=== PATIENT | male | born 1995 | race Caucasian/White ===

== ENCOUNTER 2018-01-01 08:08 | Emergency (ER) | payer SELFPAY ==
[~2018-01-01] VITALS: Ht 172.7 cm; Wt 90.3 kg
[2018-01-01 08:19] VITALS: TEMP 97.7
[2018-01-01 09:47] VITALS: BP 131/73; PULSE 74
== END 2018-01-01 09:47 | disposition home or self-care (01) ==
LOC: COL.ER 08:08
DX: H57.11 Ocular pain, right eye (principal); F17.210 Nicotine dependence, cigarettes, uncomplicated

== ENCOUNTER → 2020-02-10 | Outpatient (CLI) | payer BC | LOC: COL.RAD 08:45 | DX: K82.8 Other specified diseases of gallbladder (principal) ==

== ENCOUNTER → 2020-03-06 | Outpatient (CLI) | payer BC | LOC: COL.RAD 08:12 | DX: N20.1 Calculus of ureter (principal); R01.1 Cardiac murmur, unspecified; Z90.89 Acquired absence of other organs | CPT/HCPCS: Q9967 ==

== ENCOUNTER 2020-07-20 21:14 | Emergency (ER) | payer BC ==
[~2020-07-20] VITALS: Ht 172.7 cm; Wt 100.0 kg
[2020-07-20 21:43] LABS: COLLECTION METHOD CLEAN CATCH
[2020-07-20 22:00] LABS: MUCOUS Present /lpf; PH 5 (5-8); SQUAMOUS EPITHELIAL 0-2 /hpf; URINE APPEARANCE Hazy; URINE BACTERIA None Seen /hpf; URINE BILIRUBIN Negative (NEGATIVE); URINE BLOOD Negative (NEGATIVE); URINE COLOR Yellow; URINE GLUCOSE Negative (NEGATIVE); URINE KETONE Negative (NEGATIVE); URINE LEUKOCYTE ESTERASE Negative (NEGATIVE); URINE NITRATE Negative (NEGATIVE); URINE PROTEIN(semi-quant) 1+ (NEGATIVE); URINE RBC 0-2 /hpf
[2020-07-20 22:14] LABS: BASO # 0.1 (0.0-0.2); BASO % 0.4 % (0.0-2.0); EOS # 0.1 (0.0-0.7); EOS % 0.7 % (0-4.0); GRAN # 12.2 (1.4-6.5); GRAN % 89.5 % (42.2-75.2); HEMATOCRIT 48.5 % (42.0-52.0); HEMOGLOBIN 16.9 g/dl (13.5-18.0); LYMPH # 0.6 (1.2-3.4); MEAN CELL VOLUME 86 fl (80.0-100.0); MEAN CORPUSCULAR HEMOGLOBIN 30 pg (27.0-31.0); MEAN CORPUSCULAR HGB CONC 35 g/dl (33.0-37.0); MEAN PLATELET VOLUME 9.8 fl (7.4-10.4); MONO # 0.7 (0.1-0.6); MONO % 5.1 % (1.7-9.3); PLATELET COUNT 221 K/mm3 (130-400); RED BLOOD COUNT 5.67 M/mm3 (4.20-5.60); REDCELL DISTRIBUTION WIDTH-CV 12.3 % (11.5-14.5)
[2020-07-20 23:05] LABS: ALANINE AMINOTRANSFERASE 44 U/L (4-49); ALBUMIN 4.5 gm/dL (3.5-5.0); ALKALINE PHOSPHATASE 59 U/L (50-136); ANION GAP 10 mmol/L (7-16); AST,SGOT 31 U/L (15-37); BILIRUBIN,TOTAL 0.9 mg/dL (0.0-1.0); BLOOD UREA NITROGEN 16 mg/dL (9-20); CALCIUM 9.1 mg/dL (8.4-10.2); CARBON DIOXIDE 25 mmol/L (22-30); CHLORIDE 103 mmol/L (98-107); CREATININE, serum 0.84 (0.66-1.25); GLUCOSE 99 mg/dL (74-106); LIPASE 62 U/L (23-300); POTASSIUM 3.8 mmol/L (3.4-5.0); SODIUM 138 mmol/L (137-145); TOTAL PROTEIN 7.7 gm/dL (6.4-8.2)
[2020-07-20 23:07] LABS: C-REACTIVE PROTEIN < 0.5 mg/dL (0.0-0.9)
[2020-07-21 01:00] VITALS: BP 121/67; PULSE 90; TEMP 97.9
[2020-07-21] MEDS ORDERED: ZOFRAN ODT4 MG PO (01:17)
== END 2020-07-21 01:00 | disposition home or self-care (01) ==
LOC: COL.ER 21:14
PROVIDERS: Nurse Practitioner
DX: R10.11 Right upper quadrant pain (principal); F17.210 Nicotine dependence, cigarettes, uncomplicated; F17.220 Nicotine dependence, chewing tobacco, uncomplicated; Z88.6 Allergy status to analgesic agent
CPT/HCPCS: J2405; J3010; J7030

== ENCOUNTER 2020-08-29 05:21 | Day surgery (SDC) | payer BC ==
[2020-08-29] VITALS (7 sets, daily range): BP systolic 113–139; BP diastolic 63–78; PULSE 72–92; TEMP 97.6
[~2020-08-29] VITALS: Ht 172.7 cm; Wt 96.7 kg
[~2020-08-29 05:21] MED LIST: ZOFRAN ODT4 MG PO
[2020-08-29] MEDS ORDERED: MOTRIN 600600 MG/TAB PO (09:24)
[2020-08-29] MEDS ORDERED: NORCO 325 MG-51 TAB PO (09:24)
--- NOTE | 2020-08-29 10:04 | NUR ---
Patient returned to [facility] from PACU via cart. Patient verbalized discomfort while PACU nurse still present, fentanyl given. Patient resting comfortably in bed. Postop vital signs started and stable. Will continue to monitor. Call light within reach.
--- NOTE | 2020-08-29 10:15 | NUR ---
Glo hirsch in bed. Rails up, call light within reach. Vital signs stable. O2 95% at 2L. Will continue to monitor.
--- NOTE | 2020-08-29 10:30 | NUR ---
Patient laying in bed, rails up and call light in reach. Patient is drowsy. Verbalizes pain. Patient agrees to try apple juice and muffin. Will continue to monitor.
--- NOTE | 2020-08-29 10:45 | NUR ---
Patient asleep in bed. Vital signs stable. Will continue to monitor.
--- NOTE | 2020-08-29 11:00 | NUR ---
Patient awake in bed. Reports pain, but refuses medication at this time. Vital signs obtained, 95% on 1L O2. Will continue to monitor.
--- NOTE | 2020-08-29 11:15 | NUR ---
Patient sitting up in bed. Alert and tolerating food and drink well. Patient agrees to take pain medication and then try to get up to bathroom. Vital sign obtained, 94% on room air. Rails up and call light in reach.
--- NOTE | 2020-08-29 11:45 | NUR ---
Patient sitting up in bed. Reports pain level of 2/10. Patient ambulated with steady gait to bathroom and voided independently. Reviewed discharge instructions and education material, patient verbalized understanding. D/C IV with no complications. Instructed patient to dress and then call out for transportation to vehicle.
--- NOTE | 2020-08-29 13:00 | NUR ---
Patient transported with belongings via wheelchair to personal vehicle.
== END 2020-08-29 13:00 | disposition home or self-care (01) ==
LOC: SDCO 05:21
DX: K80.10 Calculus of gallbladder with chronic cholecystitis without obstruction (principal); K21.9 Gastro-esophageal reflux disease without esophagitis; F17.210 Nicotine dependence, cigarettes, uncomplicated; Z79.899 Other long term (current) drug therapy; Z79.891 Long term (current) use of opiate analgesic; Z20.822 Contact with and (suspected) exposure to COVID-19; Z90.89 Acquired absence of other organs
CPT/HCPCS: J0690; J1100; J2405; J2704; J3010; J7120; Q9967

== ENCOUNTER 2021-05-02 02:42 | Emergency (ER) | payer BC ==
[~2021-05-02] VITALS: Ht 172.7 cm; Wt 102.3 kg
[~2021-05-02 02:42] MED LIST changes: +MOTRIN 600600 MG/TAB PO; +NORCO 325 MG-51 TAB PO
[2021-05-02 02:46] VITALS: BP 136/89; PULSE 98; TEMP 98.3
[2021-05-02] MEDS ORDERED: NORCO 325 MG-51 TAB PO (03:01)
[2021-05-02] MEDS ORDERED: AMOXICILLIN 8751 TAB PO (03:01)
== END 2021-05-02 03:10 | disposition home or self-care (01) ==
LOC: COL.ER 02:42
DX: K04.7 Periapical abscess without sinus (principal)

== ENCOUNTER 2021-07-23 03:21 | Emergency (ER) | payer BC ==
[~2021-07-23] VITALS: Ht 175.3 cm; Wt 100.0 kg
[~2021-07-23 03:21] MED LIST changes: +AMOXICILLIN 8751 TAB PO
[2021-07-23 03:52] LABS: BASO # 0.1 K/mm3 (0.0-0.2); BASO % 0.6 % (0.0-2.0); EOS # 0.1 K/mm3 (0.0-0.7); EOS % 1.6 % (0.0-4.0); GRAN # 5.1 K/mm3 (1.4-6.5); GRAN % 66.2 % (42.2-75.2); HEMATOCRIT 44.6 % (42.0-52.0); HEMOGLOBIN 15.8 g/dl (13.5-18.0); LYMPH # 1.9 K/mm3 (1.2-3.4); LYMPH % 24.8 % (20.0-51.0); MEAN CELL VOLUME 86 fl (80.0-100.0); MEAN CORPUSCULAR HEMOGLOBIN 31 pg (27-31); MEAN CORPUSCULAR HGB CONC 35 g/dl (33.0-37.0); MEAN PLATELET VOLUME 9.5 fl (7.4-10.4); MONO # 0.5 K/mm3 (0.1-0.6); MONO % 6.7 % (1.7-9.3); PLATELET COUNT 243 K/mm3 (130-400); RED BLOOD COUNT 5.18 M/mm3 (4.20-5.60); REDCELL DISTRIBUTION WIDTH-CV 12.1 % (11.5-14.5)
[2021-07-23 04:04] LABS: COLLECTION METHOD CLEAN CATCH
[2021-07-23 04:07] LABS: ALBUMIN 4.2 gm/dL (3.5-5.0); BILIRUBIN,TOTAL 0.4 mg/dL (0.2-1.2); CALCIUM 8.9 mg/dL (8.4-10.2); CREATININE, serum 0.83 mg/dL (0.72-1.25); POTASSIUM 3.7 mmol/L (3.5-4.5); TOTAL PROTEIN 7.3 gm/dL (6.2-8.1)
[2021-07-23 04:14] LABS: AMORPHOUS CRYSTAL Present (NOT PRESENT); MUCOUS Present (NOT PRESENT); PH 7 (5-8); SQUAMOUS EPITHELIAL None Seen /hpf (0-10); URINE APPEARANCE Clear (CLEAR/HAZY); URINE BACTERIA None Seen /hpf (NONE SEEN); URINE BILIRUBIN Negative (NEGATIVE); URINE BLOOD Negative (NEGATIVE); URINE COLOR Yellow (YELLOW); URINE GLUCOSE Negative (NEGATIVE); URINE KETONE Negative (NEGATIVE); URINE LEUKOCYTE ESTERASE Negative (NEGATIVE); URINE NITRATE Negative (NEGATIVE); URINE PROTEIN(semi-quant) Negative (NEGATIVE); URINE RBC 0-2 /hpf (0-2); URINE UROBILINOGEN Negative (NEGATIVE)
[2021-07-23 04:17] LABS: TRICYCLIC ANTIDEPRESS URINE NEGATIVE
[2021-07-23 04:43] VITALS: BP 126/76; PULSE 89
== END 2021-07-23 04:40 | disposition home or self-care (01) ==
LOC: COL.ER 03:21
PROVIDERS: Student in an Organized Health Care Education/Training Program
DX: R42 Dizziness and giddiness (principal); F17.200 Nicotine dependence, unspecified, uncomplicated; Z28.310 Unvaccinated for COVID-19; Z86.61 Personal history of infections of the central nervous system